=== PATIENT | male | born 1980 | race Asian ===

== ENCOUNTER 2017-05-30 20:48 | Inpatient (IN) | payer MEDICAID ==
[~2017-05-30] VITALS: Ht 182.9 cm; Wt 90.7 kg
[2017-05-30] MEDS ORDERED: NKM (20:55)
--- NOTE | 2017-05-30 21:06 | Emergency Room Report ---
History of Present Illness General Chief Complaint: Abdominal Pain Source: Patient Present Illness HPI Is a 36 year-old [place] male with no past medical history. He presents with chief complaint of onset of upper abdominal pain. Onset was 2 hours ago. Pain is severe. 10 out of 10. No radiation. Nausea but no vomiting. One episode any stool. Denies any trauma. No fever or chills. Never had this problem before. Not associated with food. Allergies: Coded Allergies: No Known Allergies (Unverified , 05/30/17) Patient History Past Medical History: see triage record, old chart reviewed Past Surgical History: other Pertinent Family History: none Social History: Denies: smoking, alcohol use, drug use Immunizations: other Reviewed Nursing Documentation: PMH: Agreed, PSxH: Agreed Nursing Documentation-PMH Past Medical History: No Stated History Review of Systems Eye: Denies: eye pain, blurred vision ENT: Denies: ear pain, nose congestion, throat swelling Respiratory: Denies: cough, shortness of breath Cardiovascular: Denies: chest pain, palpitations Gastrointestinal: Reports: abdominal pain, nausea Musculoskeletal: Denies: back pain, joint pain Skin: Denies: rash Neurological: Denies: headache, numbness Endocrine: Denies: increased thirst, increased urine Hematologic/Lymphatic: Denies: easy bruising All Other Systems: negative except mentioned in HPI Physical Exam Vital Signs Date Time Temp Pulse Resp B/P (MAP) Pulse Ox O2 Delivery O2 Flow Rate FiO2 05/30/17 20:53 54 22 101/48 100 Room Air vitals normal Sp02 EP Interpretation: reviewed, normal General Appearance: well appearing, no apparent distress, alert Head: normocephalic, atraumatic Eyes: bilateral eye PERRL, bilateral eye EOMI ENT: hearing grossly normal, normal pharynx Neck: full range of motion, supple, no meningismus Respiratory: chest non-tender, lungs clear, normal breath sounds Cardiovascular #1: regular rate, rhythm, no murmur Gastrointestinal: normal bowel sounds, no mass, no organomegaly, no bruit, non- distended, tenderness - Mild epigastric Musculoskeletal: back normal, gait/station normal, normal range of motion Psychiatric: mood/affect normal Skin: warm/dry Medical Decision Making Diagnostic Impression: Primary Impression: Appendicitis, acute Qualified Codes: K35.80 - Unspecified acute appendicitis ER Course Patient present with acute onset of abdominal pain. Initially upper quadrant and periumbilical. Now beginning to have lower right lower quadrant. CT scan center for appendicitis. Antibiotic started. Patient emitted to Dr. Giron with Dr. Lizama a surgical consult. Laboratory Tests Test 05/30/17 21:12 05/30/17 22:01 White Blood Count 17.0 K/UL (4.8-10.8) H Red Blood Count 4.56 M/UL (4.70-6.10) L Hemoglobin 14.2 G/DL (14.2-18.0) Hematocrit 39.7 % (42.0-52.0) L Mean Corpuscular Volume 87 FL (80-99) Mean Corpuscular Hemoglobin 31.2 PG (27.0-31.0) H Mean Corpuscular Hemoglobin Concent 35.9 G/DL (32.0-36.0) Red Cell Distribution Width 11.3 % (11.6-14.8) L Platelet Count 412 K/UL (150-450) Mean Platelet Volume 5.7 FL (6.5-10.1) L Neutrophils (%) (Auto) 83.4 % (45.0-75.0) H Lymphocytes (%) (Auto) 11.9 % (20.0-45.0) L Monocytes (%) (Auto) 4.0 % (1.0-10.0) Eosinophils (%) (Auto) 0.2 % (0.0-3.0) Basophils (%) (Auto) 0.5 % (0.0-2.0) Sodium Level 137 mEQ/L (135-145) Potassium Level 3.8 mEQ/L (3.4-4.9) Chloride Level 97 mEQ/L (98-107) L Carbon Dioxide Level 25 mEQ/L (20-30) Anion Gap 15 (5-15) Blood Urea Nitrogen 13 mg/dL (7-23) Creatinine 1.0 mg/dL (0.7-1.2) Estimat Glomerular Filtration Rate > 60 mL/min (>60) Glucose Level 161 mg/dL (74-106) H Calcium Level 9.5 mg/dL (8.6-10.2) Total Bilirubin 0.9 mg/dL (0.0-1.2) Aspartate Amino Transf (AST/SGOT) 15 U/L (5-40) Alanine Aminotransferase (ALT/SGPT) 17 U/L (3-41) Alkaline Phosphatase 77 U/L (40-129) Total Protein 7.8 g/dL (6.6-8.7) Albumin 4.7 g/dL (3.5-5.2) Globulin 3.1 g/dL Albumin/Globulin Ratio 1.5 (1.0-2.7) Lipase 27 U/L (< 60) Urine Color [place] Urine Appearance Clear Urine pH 5 (4.5-8.0) Urine Specific [place] 1.025 (1.005-1.035) Urine Protein 2+ (NEGATIVE) H Urine Glucose (UA) Negative (NEGATIVE) Urine Ketones 4+ (NEGATIVE) H Urine Occult Blood 4+ (NEGATIVE) H Urine Nitrite Negative (NEGATIVE) Urine Bilirubin Negative (NEGATIVE) Urine Ictotest Negative Urine Urobilinogen 1 MG/DL (0.0-1.0) H Urine Leukocyte Esterase 1+ (NEGATIVE) H Urine RBC 5-10 /HPF (0 - 0) H Urine WBC 0-2 /HPF (0 - 0) Urine Squamous Epithelial Cells None /LPF (NONE/OCC) Urine Bacteria Few /HPF (NONE) Urine Mucus Many /LPF (NONE/OCC) H Lab Results Impression labs with leukocytosis CT/MRI/US Diagnostic Results CT/MRI/US Diagnostic Results : Imaging Test Ordered: cT abdomen and pelvis Impression Read by radiologist. Appendix is large measuring up to 10.5 mm with subtle adjacent fat stranding suggestive of early acute appendicitis. No perforation. no Abscess. Last Vital Signs Date Time Temp Pulse Resp B/P (MAP) Pulse Ox O2 Delivery O2 Flow Rate FiO2 05/30/17 20:53 54 22 101/48 100 Room Air Status: improved Disposition: ADMITTED INPATIENT Condition: Serious ART WOODALL M.D. May 30, 2017 21:06
[2017-05-30] MEDS ORDERED: Mylanta II UD 30ml ORAL ONE (21:15)
[2017-05-30] MEDS ORDERED: Famotidine 20 MG/ 2ML VIAL IVP ONE (21:15)
[2017-05-30 21:31] LABS: BASOPHILS % (AUTO) 0.5 % (0.0-2.0); EOSINOPHILS % (AUTO) 0.2 % (0.0-3.0); LYMPHOCYTES % (AUTO) 11.9 % (20.0-45.0); MEAN CORPUSCULAR HEMOGLOBIN 31.2 PG (27.0-31.0); MEAN CORPUSCULAR HGB CONC 35.9 G/DL (32.0-36.0); MEAN CORPUSCULAR VOLUME 87 FL (80-99); MEAN PLATELET VOLUME 5.7 FL (6.5-10.1); NEUTROPHILS % (AUTO) 83.4 % (45.0-75.0); PLATELET COUNT 412 K/UL (150-450); RED BLOOD COUNT 4.56 M/UL (4.70-6.10); RED CELL DISTRIBUTION WIDTH 11.3 % (11.6-14.8)
[2017-05-30 21:52] LABS: ALANINE AMINOTRANSFERASE 17 U/L (3-41); ALBUMIN/GLOBULIN RATIO 1.5 (1.0-2.7); ANION GAP 15 (5-15); ASPARTATE AMINO TRANSFERASE 15 U/L (5-40); CALCIUM 9.5 mg/dL (8.6-10.2); CARBON DIOXIDE 25 mEQ/L (20-30); CHLORIDE 97 mEQ/L (98-107); GLOMERULAR FILTRATION RATE > 60 mL/min (>60); HEMOLYSIS 2; LIPASE 27 U/L (< 60); POTASSIUM 3.8 mEQ/L (3.4-4.9); SODIUM 137 mEQ/L (135-145); TOTAL PROTEIN 7.8 g/dL (6.6-8.7)
[2017-05-30 22:21] LABS: APPEARANCE,URINE CLEAR; KETONES,URINE 4+ (NEGATIVE); LEUKOCYTE ESTERASE ,URINE 1+ (NEGATIVE); NITRITE,URINE NEGATIVE (NEGATIVE); PH,URINE 5 (4.5-8.0); PROTEIN,URINE 2+ (NEGATIVE); UROBILINOGEN,URINE 1 MG/DL (0.0-1.0)
[2017-05-30 22:23] LABS: ICTOTEST NEGATIVE
[2017-05-30 22:30] LABS: BACTERIA,URINE FEW /HPF; MUCUS,URINE MANY /LPF (NONE/OCC); WBC,URINE 0-2 /HPF (0 - 0)
[2017-05-30] MEDS ORDERED: Piperacillin/Tazobactam 3.375 GM in NS 110 ML IVPB ONE (23:30)
[2017-05-30] MEDS ORDERED: Zosyn 3.375gm inj ONE (23:40)
[2017-05-30] MEDS ORDERED: Miralax 17gm pkt ORAL PRN (23:45)
[2017-05-30] MEDS ORDERED: Mylanta II UD 30ml ORAL PRN (23:45)
[2017-05-30] MEDS ORDERED: Morphine Sulfate 2mg/ml Inj IVP PRN (23:45)
[2017-05-30] MEDS ORDERED: Nitroglycerin Subl 0.4mg tab (Bottle Of 25) SL PRN (23:45)
[2017-05-30] MEDS ORDERED: HYDROmorphone 1mg/ml Carpuject IVP ONE (23:45)
[2017-05-30 23:57] VITALS: BP 125/79
[2017-05-31] VITALS (19 sets, daily range): BP systolic 103–133; BP diastolic 62–82
[2017-05-31] MEDS: D5 1/2NS 1,000 ML IV SCH ×2 (01:00→06:01)
[2017-05-31] MEDS ORDERED: Zosyn 3.375gm inj ONE (02:42)
[2017-05-31 05:02] LABS: MEAN CORPUSCULAR HEMOGLOBIN 31.1 PG (27.0-31.0); MEAN CORPUSCULAR HGB CONC 34.8 G/DL (32.0-36.0); MEAN CORPUSCULAR VOLUME 89 FL (80-99); MEAN PLATELET VOLUME 5.9 FL (6.5-10.1); PLATELET COUNT 341 K/UL (150-450); RED BLOOD COUNT 4.06 M/UL (4.70-6.10); WHITE BLOOD COUNT 14.5 K/UL (4.8-10.8)
[2017-05-31 05:15] LABS: INR 0.9 (0.9-1.1); PROTHROMBIN TIME 9.9 SEC (9.30-11.50)
--- NOTE | 2017-05-31 05:30 | General Progress Note ---
Progress Note Progress Note H&P dictated #[id number] This 36 yo male presents with rt lower abdominal pain and nausea. A CT scan reveals a thickened appendix. CBC shows a leukocytosis of 17K. He will need to undergo a laparoscopic appendectomy, possible open appendectomy. Petey Lizama MD May 31, 2017 05:30
[2017-05-31 05:35] LABS: ALANINE AMINOTRANSFERASE 14 U/L (3-41); ALBUMIN/GLOBULIN RATIO 1.3 (1.0-2.7); AMYLASE 41 U/L (10-110); ANION GAP 12 (5-15); ASPARTATE AMINO TRANSFERASE 12 U/L (5-40); CALCIUM 8.7 mg/dL (8.6-10.2); CARBON DIOXIDE 24 mEQ/L (20-30); CHLORIDE 104 mEQ/L (98-107); CREATININE 0.8 mg/dL (0.7-1.2); GLOMERULAR FILTRATION RATE > 60 mL/min (>60); HEMOLYSIS 1; LIPASE 20 U/L (< 60); POTASSIUM 4.4 mEQ/L (3.4-4.9); SODIUM 140 mEQ/L (135-145); TOTAL PROTEIN 6.8 g/dL (6.6-8.7)
[2017-05-31] MEDS: Piperacillin/Tazobactam 3.375 GM in NS 110 ML IVPB SCH ×3 (05:54→21:47)
[2017-05-31] MEDS ORDERED: Bupivacaine w/Epi 0.25% 30ml Vial INJ ONE (06:22)
--- NOTE | 2017-05-31 06:30 | Consultation ---
DATE OF CONSULTATION: 05/31/2017 SURGICAL CONSULTATION CONSULTING PHYSICIAN: Petey Lizama M.D. REASON FOR CONSULTATION: Abdominal pain. HISTORY OF PRESENT ILLNESS: This 36-year-old male, developed problems with upper abdominal pain at approximately 0630 hours yesterday evening. The pain intensified causing him to seek medical attention. He reported some nausea, but no vomiting. He had a normal formed stool last night. He denied any symptoms of fever or chills. He denied any problems of dysuria. PAST MEDICAL HISTORY: Previous surgery, lumbar laminectomy 20 years ago. 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 ALLERGIES: None known. MEDICATIONS: None. FAMILY HISTORY: The patient's father has high blood pressure. The patient's mother underwent heart surgery. SOCIAL HISTORY: Tobacco, none. Alcohol, none. 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 REVIEW OF SYSTEMS: Essentially negative. There is no history of angina or asthma. He denies any history of peptic ulcer disease or hepatitis. PHYSICAL EXAMINATION: GENERAL: Reveals a well-developed and well-nourished male, complaining of abdominal pain. VITAL SIGNS: Temperature is 97.6 degrees, blood pressure 121/71, pulse 60, and respirations 20. HEENT: Normocephalic. Pupils were equal and reactive to light. There was no scleral icterus. NECK: Supple without adenopathy. LUNGS: Clear. HEART: Showed a regular rhythm. ABDOMEN: Abdomen was flat. There is tenderness with some mild guarding in the right lower quadrant. There is early rebound tenderness noted. There were no inguinal hernias. EXTREMITIES: Showed no clubbing, cyanosis, or edema. Peripheral pulses are intact. LABORATORY STUDIES: CBC showed a white blood count of 17,000, hemoglobin 14.2 grams percent, hematocrit 39.7%, and platelet count 412,000. Clinical chemistry showed a sodium of 137, potassium 3.8, chloride 97, bicarbonate 25, BUN 13, creatinine 1.0, glucose 161, total bilirubin 0.9, SGOT 17, SGPT 15, and alkaline phosphatase normal at 77. Lipase normal at 27. Urinalysis showed a specific gravity of 1.025, 2+ protein, 4+ ketones, and 4+ occult blood. Dipstick was otherwise negative. Few bacteria, red blood cells 5 to 10, and white blood cells 0 to 2. PT and PTT were pending. A CT scan of the abdomen showed a thickened appendix, 1 cm. There was no obstructive pattern. There was no free air. IMPRESSION: Acute appendicitis. PLAN: The patient will be taken to the operating room for a laparoscopic appendectomy, possible open appendectomy. The nature, risks, and benefits of the procedure were explained. Petey Lizama M.D. DR: Dillon JOB#: [id number] CC:
[2017-05-31] MEDS ORDERED: Neostigmine 1mg/ml 10ml Inj ONE (07:00)
[2017-05-31] MEDS ORDERED: Sterile Water Irrig 1000ml IRRIG ONE (07:00)
[2017-05-31] MEDS ORDERED: Lidocaine 1% MPF 10mg/ml 5ml ONE (07:00)
[2017-05-31] MEDS ORDERED: Zemuron 50mg/5ml Inj IV ONE (07:00)
[2017-05-31] MEDS ORDERED: Midazolam 2mg/2ml Inj ONE (07:00)
[2017-05-31] MEDS ORDERED: Dexamethasone 4mg/ml vial ONE (07:00)
[2017-05-31] MEDS ORDERED: Glycopyrrolate 0.2mg/ml 1ml Vial ONE (07:00)
[2017-05-31] MEDS ORDERED: LR 1000ml ONE (07:00)
[2017-05-31] MEDS ORDERED: Propofol 10mg/ml 20ml IV ONE (07:00)
[2017-05-31] MEDS ORDERED: NS Irrig 1000ml ONE (07:00)
[2017-05-31] MEDS ORDERED: fentaNYL 100 mcg/2 mL IV ONE (07:00)
[2017-05-31] MEDS ORDERED: LR 1000ml 1,000 ML IVLG SCH (07:40)
--- NOTE | 2017-05-31 07:40 | Anethesia Preoperative Eval ---
Anesthesia Pre-op PMH/ROS General Date of Evaluation: May 31, 2017 Time of Evaluation: 06:44 Anesthesiologist: Dejan ASA Score: ASA 1 - Emergency Mallampati Score Class I : Soft palate, uvula, fauces, pillars visible Class II: Soft palate, uvula, fauces visible Class III: Soft palate, base of uvula visible Class IV: Only hard plate visible Mallampati Classification: Class II Surgeon: Dl Diagnosis: Acute Appendicitis Surgical Procedure: Laproscopic Appendectomy Anesthesia History: none Family History: no anesthesia problems Allergies: Coded Allergies: No Known Allergies (Unverified , 05/30/17) Medications: see eMAR Past Medical History PSxH Narrative: L Ring Finger Amputation, Lumbar Spine SX 97 Anesthesia Pre-op Phys. Exam Physician Exam Last Vital Signs Date Time Temp Pulse Resp B/P (MAP) Pulse Ox O2 Delivery O2 Flow Rate FiO2 05/31/17 04:00 97.6 60 20 121/71 98 Room Air Constitutional: NAD Neurologic: CN 2-12 intact Cardiovascular: RRR Respiratory: CTA Gastrointestinal: S/NT/ND Airway Exam Mallampati Score: Class II MO: full ROM: full Teeth: intact Anesthesia Pre-op A/P Labs Hematology Test 05/30/17 21:12 05/31/17 04:15 White Blood Count 17.0 K/UL (4.8-10.8) H 14.5 K/UL (4.8-10.8) H Red Blood Count 4.56 M/UL (4.70-6.10) L 4.06 M/UL (4.70-6.10) L Hemoglobin 14.2 G/DL (14.2-18.0) 12.6 G/DL (14.2-18.0) L Hematocrit 39.7 % (42.0-52.0) L 36.3 % (42.0-52.0) L Mean Corpuscular Volume 87 FL (80-99) 89 FL (80-99) Mean Corpuscular Hemoglobin 31.2 PG (27.0-31.0) H 31.1 PG (27.0-31.0) H Mean Corpuscular Hemoglobin Concent 35.9 G/DL (32.0-36.0) 34.8 G/DL (32.0-36.0) Red Cell Distribution Width 11.3 % (11.6-14.8) L 11.0 % (11.6-14.8) L Platelet Count 412 K/UL (150-450) 341 K/UL (150-450) Mean Platelet Volume 5.7 FL (6.5-10.1) L 5.9 FL (6.5-10.1) L Neutrophils (%) (Auto) 83.4 % (45.0-75.0) H % (45.0-75.0) Lymphocytes (%) (Auto) 11.9 % (20.0-45.0) L % (20.0-45.0) Monocytes (%) (Auto) 4.0 % (1.0-10.0) % (1.0-10.0) Eosinophils (%) (Auto) 0.2 % (0.0-3.0) % (0.0-3.0) Basophils (%) (Auto) 0.5 % (0.0-2.0) % (0.0-2.0) Coagulation Test 05/31/17 04:15 Prothrombin Time 9.9 SEC (9.30-11.50) Prothromb Time International Ratio 0.9 (0.9-1.1) Activated Partial Thromboplast Time 26 SEC (23-33) Chemistry Test 05/30/17 21:12 05/31/17 04:15 Sodium Level 137 mEQ/L (135-145) 140 mEQ/L (135-145) Potassium Level 3.8 mEQ/L (3.4-4.9) 4.4 mEQ/L (3.4-4.9) Chloride Level 97 mEQ/L (98-107) L 104 mEQ/L (98-107) Carbon Dioxide Level 25 mEQ/L (20-30) 24 mEQ/L (20-30) Anion Gap 15 (5-15) 12 (5-15) Blood Urea Nitrogen 13 mg/dL (7-23) 11 mg/dL (7-23) Creatinine 1.0 mg/dL (0.7-1.2) 0.8 mg/dL (0.7-1.2) Estimat Glomerular Filtration Rate > 60 mL/min (>60) > 60 mL/min (>60) Glucose Level 161 mg/dL (74-106) H 157 mg/dL (74-106) H Calcium Level 9.5 mg/dL (8.6-10.2) 8.7 mg/dL (8.6-10.2) Total Bilirubin 0.9 mg/dL (0.0-1.2) 1.0 mg/dL (0.0-1.2) Aspartate Amino Transf (AST/SGOT) 15 U/L (5-40) 12 U/L (5-40) Alanine Aminotransferase (ALT/SGPT) 17 U/L (3-41) 14 U/L (3-41) Alkaline Phosphatase 77 U/L (40-129) 74 U/L (40-129) Total Protein 7.8 g/dL (6.6-8.7) 6.8 g/dL (6.6-8.7) Albumin 4.7 g/dL (3.5-5.2) 3.9 g/dL (3.5-5.2) Globulin 3.1 g/dL 2.9 g/dL Albumin/Globulin Ratio 1.5 (1.0-2.7) 1.3 (1.0-2.7) Lipase 27 U/L (< 60) 20 U/L (< 60) Amylase Level 41 U/L (10-110) Risk Assessment & Plan Assessment: ASA 1E Status Change Before Surgery: No Pre-Antibiotics Drug: Zosyn 3.375 Grams IV Given Within 1 Hr of Incision: Yes Time Given: 07:01 Tyrone Wylie MD May 31, 2017 07:40
--- NOTE | 2017-05-31 07:44 | Immediate Post-Op Evaluation ---
Immediate Post-Op Evalulation Immediate Post-Op Evalulation Procedure: Laprocopic Appendectomy Date of Evaluation: May 31, 2017 Time of Evaluation: 09:02 IV Fluids: 1100 LR Blood Products: 0 Estimated Blood Loss: 50 Urinary Output: 200 Blood Pressure Systolic: 124 Blood Pressure Diastolic: 76 Pulse Rate: 67 Respiratory Rate: 16 O2 Sat by Pulse Oximetry: 100 Temperature (Fahrenheit): 98.8 Pain Score (1-10): 2 Nausea: No Vomiting: No Complications 0 Patient Status: awake, reacts, patent, extubated, none Hydration Status: adequate Drug: Zosyn 3.375 Grams IV Given Within 1 Hr of Incision: Yes Time Given: 07:01 Tyrone Wylie MD May 31, 2017 07:44
[2017-05-31] MEDS ORDERED: Atropine Inj 1mg/10ml Syr IV PRN (07:45)
[2017-05-31] MEDS ORDERED: Hydromorphone 0.5mg/0.5ml inj IVP PRN ×2 (07:45→08:00)
[2017-05-31] MEDS ORDERED: Midazolam 2mg/2ml Inj IVP PRN (07:45)
[2017-05-31] MEDS ORDERED: Ketorolac 30mg Inj IV PRN (07:45)
[2017-05-31] MEDS ORDERED: Norco 7.5mg/325mg tab ORAL PRN (07:45)
[2017-05-31] MEDS ORDERED: DiphenhydrAMINE 50mg/ml Inj IVP PRN ×2 (07:45→08:45)
[2017-05-31] MEDS ORDERED: fentaNYL 100 mcg/2 mL IV PRN (07:45)
[2017-05-31] MEDS ORDERED: Metoclopramide 10mg/2ml Inj IVP PRN (07:45)
[2017-05-31] MEDS ORDERED: Norco 5mg/325mg tab ORAL PRN ×2 (07:45→08:45)
[2017-05-31] MEDS ORDERED: Meperidine 25mg/0.5ml Inj (FOR RIGORS ONLY) IV PRN (07:45)
[2017-05-31] MEDS ORDERED: Ketorolac 60mg Inj IV PRN (07:45)
[2017-05-31] MEDS ORDERED: oxyCODONE HCL/Acetaminophen 5/325mg ORAL PRN (07:45)
[2017-05-31] MEDS ORDERED: LORazepam Inj 2mg/ml 1ml IV PRN (07:45)
[2017-05-31] MEDS ORDERED: Acetaminophen (Non formulary) 100 ML IV SCH (08:45)
--- NOTE | 2017-05-31 08:49 | Pre-Procedure Note/Attestation ---
Pre-Procedure Note/Attestation Complete Prior to Procedure Planned Procedure: not applicable Procedure Narrative: laparoscopic appendectomy, possible open appendectomy Indications for Procedure Pre-Operative Diagnosis: acute appendicitis Attestation I attest that I discussed the nature of the procedure; its benefits; risks and complications; and alternatives (and the risks and benefits of such alternatives ), prior to the procedure, with the patient (or the patient's legal account development representative). I attest that, if there was a reasonable possibility of needing a blood transfusion, the patient (or the patient's legal account development representative) was given the [facility] standardized written summary, pursuant to the Suhail Estella Blood Safety Act ([place] Health and Safety Code # 1645, as amended). I attest that I re-evaluated the patient just prior to the surgery and that there has been no change in the patient's H&P, except as documented below: none Petey Lizama MD May 31, 2017 08:49
[2017-05-31] MEDS: Heparin 5000 units/ml inj SUBQ SCH ×2 (09:00→21:58)
--- NOTE | 2017-05-31 09:00 | Brief Operative Note ---
Immediate Post Operative Note Operative Note Pre-op Diagnosis: acute appendicitis Procedure: laparoscopic appendectomy Post-op Diagnosis: acute suppurative appendicitis Surgeon: Zara Lizama MD Anesthesiologist: Amador Wylie MD Anesthesia: general Specimen: yes Complications: none Condition: stable Fluids: 1100 ml Implant(s) used?: No Petey Lizama MD May 31, 2017 09:00
--- NOTE | 2017-05-31 09:47 | Diagnostic Imaging Report ---
Indication: Abdominal pain Technique: Continuous helical transaxial imaging of the abdomen and pelvis was obtained from the lung bases to the pubic symphysis during intravenous contrast administration. Coronal 2-D reformats were also obtained. Study obtained in a Siemens sensation [address] Total Dose length Product (DLP): [address] Dose Index Volume (CTDIvol): 18.84, 0.15 mGy Comparison: None Findings: There is some posterior basilar atelectasis noted. Liver and spleen and kidneys are unremarkable. There is no hydronephrosis. Gallbladder and pancreas are unremarkable. The appendix is retrocecal and dilated. There is enhancement of the wall and the wall is ill-defined. Appendiceal diameter is about 12 mm. Findings consistent with acute appendicitis. There is no abscess. No free fluid or free air identified. Small left inguinal hernia containing fat demonstrated. Bladder is nondistended. A few scattered calcified plaques noted within the aorta and iliac arteries. Impression: Acute appendicitis. Mild atherosclerotic vascular disease [facility] has communicated the preliminary results to the Emergency Department. Their findings are largely concordant with this report. The CT scanner at [facility] is accredited by the [employer] and the scans are performed using dose optimization techniques as appropriate to a performed exam including Automatic Exposure control.
[2017-05-31] MEDS: D5 1/2NS w/KCl 20mEq 1,000 ML IV SCH ×2 (12:25→20:30)
[2017-05-31] MEDS: Docusate 100mg cap ORAL SCH ×2 (12:27→17:41)
--- NOTE | 2017-05-31 17:00 | Operative Note - Dictated ---
DATE OF OPERATION: 05/31/2017 PREOPERATIVE DIAGNOSIS: Acute appendicitis. POSTOPERATIVE DIAGNOSIS: Suppurative appendicitis. PROCEDURE: Laparoscopic appendectomy. SURGEON: Petey Lizama M.D. ANESTHESIA: General endotracheal. ANESTHESIOLOGIST: Tyrone Wylie M.D. INDICATIONS FOR SURGERY: This 36-year-old male presented with 1-day history of worsening upper abdominal pain that began to localize to the right lower quadrant. He was found to have leukocytosis to 17,000. CT scan taken from the emergency room revealed a swollen appendix with some stranding. He was advised to undergo laparoscopic appendectomy, possible open appendectomy. The nature, risks, and benefits of the procedure were explained. OPERATIVE FINDINGS: Exploration of the abdominal cavity revealed no ascites. The liver was normal in size and texture. There was a prominent amount of the greater omentum adherent to the cecum and right colon. Upon mobilization of the omentum and the right colon, a markedly inflamed appendix was encountered. The appendiceal base appeared healthy. There was no evidence of abscess formation. OPERATIVE TECHNIQUE: With the patient in the supine position after induction of adequate general anesthesia, the abdomen was prepped and draped in sterile fashion. Time-out was called. A small puncture wound was made just above the umbilicus. A Veress needle was introduced into the abdominal cavity. The intraperitoneal position was confirmed by saline instillation and the drop test. The abdomen was insufflated with four liters of carbon dioxide. The Veress needle was removed. A 5 mm trocar was introduced. After inspection of the abdomen, a second 5 mm trocar was introduced in the suprapubic region slightly to the left of the midline. A 12 mm trocar was introduced in the left lower quadrant through a small transverse incision. The cecum was identified. The cecum was grasped with a grasping forceps. There was a generous amount of the omentum adherent to the cecum. The lateral peritoneal attachments to the cecum and right colon were slowly taken down by blunt dissection and electrocautery. The inflamed appendix was identified. The appendix was mobilized anteriorly. There were extensive omental adhesions to this area that were carefully taken down. The mesoappendix was dissected. There was some bleeding from this site. The bleeding was controlled with Hemoclips. The appendix was further mobilized until the base of the appendix was identified. An Endo-EMIGDIO stapler was placed across the base of the appendix and fired. The appendix was removed through the 12 mm port with the help of an EndoCatch apparatus. The right paracolic gutter was copiously irrigated and aspirated. There was old clot from the mobilization of the ascending colon. There was no active bleeding. Due to the extensive amount of clot on the right paracolic gutter, a 19-Vietnamese Daniel drain was placed along the right paracolic gutter through the suprapubic 5 mm puncture site. The drain was secured to the skin with a 2-0 nylon suture. The 12 mm trocar was removed. Under laparoscopic visualization, there was no evidence of hemorrhage from the site. The pneumoperitoneum was reversed and the 5 mm supraumbilical port was removed. The left lower quadrant puncture wound was closed with #0 Vicryl fascial suture followed by a 4-0 Monocryl subcuticular stitch. The 5 mm supraumbilical puncture site was closed with interrupted 4-0 Monocryl subcuticular sutures. The wounds were injected with 0.25% Marcaine with epinephrine solution. Sterile dressings were applied. The patient tolerated the procedure well and was returned to the recovery room in stable condition. ESTIMATED BLOOD LOSS: A 30 mL. Petey Lizama M.D. DR: LUCIO JOB#: [id number] CC:
[2017-05-31] MEDS ORDERED: CIPROFLOXACIN500 M2 ORAL (17:50)
[2017-05-31] MEDS ORDERED: METRONIDAZOLE500 MG ORAL (17:50)
--- NOTE | 2017-05-31 18:07 | Infectious Diseases Prog Note ---
Infectious Disease Consult Infectious Disease Consult Infectious Disease Consult INFECTIOUS DISEASE CONSULTATION DATE OF CONSULTATION: [id number] CONSULTING PHYSICIAN: Bubba Childs M.D., [facility], [facility] Covering for Dr. Alcantara REFERRING PHYSICIAN: Carmela Giron MD REASON FOR CONSULTATION: acute appendicitis, uncomplicated, s/p lap appy HISTORY OF PRESENT ILLNESS: 36-year-old male admitted yesterday for acute abd pain, nausea, w/o emesis, found to have radiographic evidence of acute appendicitis w/o abscess or stigmata of perforation, now s/p uncomplicated laparoscopic appendectomy earlier today. He has been afebrile throughout, never hemodynamically unstable, admission leukocytosis of 17 with left shift improved this AM to 14 on empiric IV zosyn, and denies recent cough, chest pain, hemoptysis, dysuria, urinary frequency. his is at bedside. he reports he's had about 2 days of R sided pain with deep inspiration. PAST MEDICAL HISTORY: No chronic medical conditions Previous surgery, lumbar laminectomy 20 years ago. 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 Past Surgical History: lumbar laminectomy 20 years ago. 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 ALLERGIES: No known drug allergies. ANTIBIOTICS: Zosyn 3.375gm IV q8hr (05/30-- Home and hospitalized medications reviewed. SOCIAL HISTORY: Tobacco, none. Alcohol, none. 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 FAMILY HISTORY: The patient's father has high blood pressure. The patient's mother underwent heart surgery. REVIEW OF SYSTEMS: 11 point ROS negative except for that mentioned in HPI above. PHYSICAL EXAM: VITAL SIGNS: Tb 97.7F HR 76 BP 103/67 RR 19 99% 3L NC GEN: awake, alert, non toxic appearing HEENT: Mild pale conjunctiva. oral mucosa dry, pharynx w/o exudate or effusion. No icterus. Head normocephalic, neck supple. NECK: No cervical LAD CHEST: Clear to auscultation bilaterally. slight decreased breath sounds at right lung base. HEART: S1 and S2, no murmurs, no rubs. ABDOMEN: soft, non tender, non distended, hypoactive active bowel sounds. periumbilical lap appy incision site under dressing. low midline GERHARD drain draining mild-mod amount of blood EXTREMITIES: No cyanosis, no clubbing, no edema. NEUROLOGIC: Awake, alert, no focal neurologic motor deficits. : no andrea in place LYMPH: no LAD RECTAL: deferred LABORATORY AND DIAGNOSTIC DATA: WBC 17.0-->14.5, hgb 12.6, plt 341, N 83.4% bmp 140/4.4/104/24/11/0.8/157 ca 8.7, t bili 1.0, alk phos 74, ast 12, alt 14 , prot 6.8, alb 3.9, amylase 41, lipase 20 u/a 1.025/2+ prot/4+ ketones/1+LE/0-2WBC/5-10 RBC RADIOLOGY: Patient : RAYMON MOSCOSO Referring Physician: ART WOODALL M.D. ID Number: [id number] Service Date: 05/30/17 : 1980 Report Date: 05/30/17 Gender: M Accession No.: [id number] Location: 3E Procedure: CT Abdomen Pelvis w/Contrast Indication: Abdominal pain Technique: Continuous helical transaxial imaging of the abdomen and pelvis was obtained from the lung bases to the pubic symphysis during intravenous contrast administration. Coronal 2-D reformats were also obtained. Study obtained in a Siemens sensation [address] Total Dose length Product (DLP): [address] Dose Index Volume (CTDIvol): 18.84, 0.15 mGy Comparison: None Findings: There is some posterior basilar atelectasis noted. Liver and spleen and kidneys are unremarkable. There is no hydronephrosis. Gallbladder and pancreas are unremarkable. The appendix is retrocecal and dilated. There is enhancement of the wall and the wall is ill-defined. Appendiceal diameter is about 12 mm. Findings consistent with acute appendicitis. There is no abscess. No free fluid or free air identified. Small left inguinal hernia containing fat demonstrated. Bladder is nondistended. A few scattered calcified plaques noted within the aorta and iliac arteries. Impression: Acute appendicitis. Mild atherosclerotic vascular disease ASSESSMENT AND PLAN ASSESSMENT: Acute appendicitis, w/o abscess, w/o perforation, s/p laparoscopic appendectomy 05/31/17 leukocytosis w/ left shift afebrile R sided referred pain PLAN: Continue empiric IV zosyn D#1 Once tolerating PO and ready for discharge, plan to transition to PO cipro 500mg twice daily and flagyl 500mg PO q8hr to complete 7 days post op. updated d/c meds and printed our prescription and placed in his paper chart. f/u final operative report to confirm no abscess or early phlegmon noted intraoperatively monitor CBC, repeat in AM PCXR for referred pain, r/o unlikely sympathetic effusion monitor temp routine post op care incentive spirometry Thank you for this consultation. Will continue to follow. Covering for Dr. Alcantara, please call me with questions, Bubba Childs M.D. May 31, 2017 18:07
[2017-06-01] VITALS: BP 119/72
[2017-06-01] MEDS: HYDROmorphone 1mg/ml Carpuject IVP PRN (03:24)
[2017-06-01 04:00] VITALS: BP 113/68
[2017-06-01] MEDS: D5 1/2NS w/KCl 20mEq 1,000 ML IV SCH (04:37)
[2017-06-01] MEDS: Piperacillin/Tazobactam 3.375 GM in NS 110 ML IVPB SCH ×3 (05:48→21:05)
[2017-06-01 05:50] LABS: MEAN CORPUSCULAR HEMOGLOBIN 30.5 PG (27.0-31.0); MEAN CORPUSCULAR HGB CONC 34.7 G/DL (32.0-36.0); MEAN CORPUSCULAR VOLUME 88 FL (80-99); MEAN PLATELET VOLUME 5.2 FL (6.5-10.1); PLATELET COUNT 300 K/UL (150-450); RED BLOOD COUNT 3.61 M/UL (4.70-6.10)
[2017-06-01 07:10] LABS: ANION GAP 10 (5-15); CALCIUM 8.6 mg/dL (8.6-10.2); CARBON DIOXIDE 27 mEQ/L (20-30); CHLORIDE 101 mEQ/L (98-107); CREATININE 0.8 mg/dL (0.7-1.2); GLOMERULAR FILTRATION RATE > 60 mL/min (>60); POTASSIUM 4.4 mEQ/L (3.4-4.9); SODIUM 138 mEQ/L (135-145)
[2017-06-01 08:00] VITALS: BP 110/83
[2017-06-01 08:24] LABS: BAND NEUTROPHILS % (MANUAL) 0 % (0-8); BASOPHILS % (MANUAL) 0 % (0-2); EOSINOPHILS % (MANUAL) 0 % (0-3); LYMPHOCYTES % (MANUAL) 8 % (20-45); NEUTROPHILS % (MANUAL) 89 % (45-75); PLATELET ESTIMATE ADEQUATE; PLATELET MORPHOLOGY NORMAL; TOTAL CELLS COUNTED 100
[2017-06-01] MEDS: Docusate 100mg cap ORAL SCH ×2 (09:21→18:16)
[2017-06-01] MEDS: Heparin 5000 units/ml inj SUBQ SCH ×2 (09:26→21:12)
--- NOTE | 2017-06-01 10:38 | General Progress Note ---
Progress Note Progress Note Surgery: patient seen and examined at bedside. no acute events. having abdominal pain. no n/v/f/c. tolerating clears. no BM. drain without serosang output abd soft, mild distended, tender in RLQ and incisional. -Advance diet as tolerated -repeat labs tomorrow -cont abx -ambulate and OOB -TKO iv fluids -possible d/c tomorrow. Osvaldo Qureshi Jun 01, 2017 10:38
--- NOTE | 2017-06-01 11:27 | 48 Hour Post Anesthesia Eval ---
Post Anesthesia Evaluation Procedure: Laprocopic Appendectomy Date of Evaluation: Jun 01, 2017 Time of Evaluation: 11:26 Blood Pressure Systolic: 116 0: 54 Pulse Rate: 72 Respiratory Rate: 20 Temperature (Fahrenheit): 97.6 O2 Sat by Pulse Oximetry: 98 Airway: patent Nausea: No Vomiting: No Pain Intensity: 3 Hydration Status: adequate Cardiopulmonary Status: stable Mental Status/LOC: patient returned to baseline Follow-up Care/Observations: n/a Post-Anesthesia Complications: none Follow-up care needed: N/A KEERTHI RUSSO M.D. Jun 01, 2017 11:27
[2017-06-01 12:00] VITALS: BP 118/78
--- NOTE | 2017-06-01 15:15 | Infectious Diseases Prog Note ---
Assessment/Plan Assessment/Plan ASSESSMENT: Acute appendicitis, w/o abscess, w/o perforation, s/p laparoscopic appendectomy 05/31/17 leukocytosis w/ left shift, improving down to 13 afebrile s/p R sided referred pain PLAN: Continue empiric IV zosyn D#2 Once tolerating PO and ready for discharge, plan to transition to PO cipro 500mg twice daily and flagyl 500mg PO q8hr to complete 7 days post op. updated d/c meds and printed our prescription and placed in his paper chart. monitor CBC, repeat in AM monitor temp routine post op care incentive spirometry Subjective Constitutional: Reports: no symptoms Respiratory: Reports: no symptoms Cardiovascular: Reports: no symptoms Gastrointestinal/Abdominal: Reports: bloating Genitourinary: Reports: no symptoms Skin: Reports: no symptoms Hematologic: Reports: no symptoms Musculoskeletal: Reports: no symptoms Allergies: Coded Allergies: No Known Allergies (Unverified , 05/30/17) Subjective hasn't passed much gas yet. referred R scapular pain completely resolved. starting to tolerate diet. Objective Vital Signs Last 24 Hour Vital Signs Date Time Temp Pulse Resp B/P (MAP) Pulse Ox O2 Delivery O2 Flow Rate FiO2 06/01/17 12:00 97.9 79 20 118/78 96 Room Air 06/01/17 11:27 72 20 98 06/01/17 08:00 99.3 89 19 110/83 95 Room Air 06/01/17 04:00 98.1 80 18 113/68 96 06/01/17 00:00 97.6 87 18 119/72 97 Room Air 05/31/17 20:00 98.5 79 17 112/63 99 Nasal Cannula 2.0 05/31/17 17:31 97.7 76 19 103/67 99 Nasal Cannula 3.0 05/31/17 15:30 98.3 65 19 107/68 98 Nasal Cannula 3.0 Height (Feet): 6 Height (Inches): 0.00 Weight (Pounds): 200 Objective GEN: awake, alert, non toxic appearing HEENT: conjunctiva pink. oral mucosa moist, pharynx w/o exudate or effusion. No icterus. Head normocephalic, neck supple. NECK: No cervical LAD CHEST: Clear to auscultation bilaterally. slight decreased breath sounds at right lung base. HEART: S1 and S2, no murmurs, no rubs. ABDOMEN: soft, non tender, non distended, hypoactive active bowel sounds. periumbilical lap appy incision site under dressing. low midline GERHARD drain draining minimal amount of blood EXTREMITIES: No cyanosis, no clubbing, no edema. NEUROLOGIC: Awake, alert, no focal neurologic motor deficits. : no andrea in place LYMPH: no LAD RECTAL: deferred Laboratory Tests Test 06/01/17 05:30 White Blood Count 13.0 K/UL (4.8-10.8) H Red Blood Count 3.61 M/UL (4.70-6.10) L Hemoglobin 11.0 G/DL (14.2-18.0) L Hematocrit 31.7 % (42.0-52.0) L Mean Corpuscular Volume 88 FL (80-99) Mean Corpuscular Hemoglobin 30.5 PG (27.0-31.0) Mean Corpuscular Hemoglobin Concent 34.7 G/DL (32.0-36.0) Red Cell Distribution Width 11.0 % (11.6-14.8) L Platelet Count 300 K/UL (150-450) Mean Platelet Volume 5.2 FL (6.5-10.1) L Neutrophils (%) (Auto) % (45.0-75.0) Lymphocytes (%) (Auto) % (20.0-45.0) Monocytes (%) (Auto) % (1.0-10.0) Eosinophils (%) (Auto) % (0.0-3.0) Basophils (%) (Auto) % (0.0-2.0) Differential Total Cells Counted 100 Neutrophils % (Manual) 89 % (45-75) H Lymphocytes % (Manual) 8 % (20-45) L Monocytes % (Manual) 3 % (1-10) Eosinophils % (Manual) 0 % (0-3) Basophils % (Manual) 0 % (0-2) Band Neutrophils 0 % (0-8) Platelet Estimate Adequate Platelet Morphology Normal Red Blood Cell Morphology Normal Sodium Level 138 mEQ/L (135-145) Potassium Level 4.4 mEQ/L (3.4-4.9) Chloride Level 101 mEQ/L (98-107) Carbon Dioxide Level 27 mEQ/L (20-30) Anion Gap 10 (5-15) Blood Urea Nitrogen 11 mg/dL (7-23) Creatinine 0.8 mg/dL (0.7-1.2) Estimat Glomerular Filtration Rate > 60 mL/min (>60) Glucose Level 126 mg/dL (74-106) H Calcium Level 8.6 mg/dL (8.6-10.2) Current Medications Medications (Trade) Dose Ordered Sig/Estrada Route PRN Reason Start Time Stop Time Status Last Admin Dose Admin Acetaminophen (Tylenol) 650 mg Q4H PRN ORAL fever 05/30/17 23:45 06/29/17 23:44 Acetaminophen/ Hydrocodone Bitart ([place] 5/325) 1 tab Q4H PRN ORAL Moderate Pain (Pain Scale 4-6) 05/31/17 08:45 06/07/17 08:44 Al Hydroxide/Mg Hydroxide (Mylanta II) 30 ml Q6H PRN ORAL dyspepsia 05/30/17 23:45 06/29/17 23:44 Dextrose (Dextrose 50%) STAT PRN IV Hypoglycemia 05/30/17 23:45 06/29/17 23:44 Diphenhydramine HCl (Benadryl) 12.5 mg Q6H PRN IVP Itching/Pruritis 05/31/17 08:45 06/30/17 08:44 Diphenhydramine HCl (Benadryl) 25 mg Q6H PRN ORAL Itching/Pruritis 05/30/17 23:45 06/29/17 23:44 Docusate Sodium (Colace) 100 mg TWICE A DAY ORAL 05/31/17 11:45 06/30/17 11:44 06/01/17 09:21 Heparin Sodium (Porcine) (Heparin 5000 units/ml) 5,000 units EVERY 12 HOURS SUBQ 05/31/17 09:00 06/30/17 08:59 06/01/17 09:26 Hydromorphone HCl (Dilaudid) 1 mg Q3H PRN IVP pain score 4-6 05/31/17 08:45 06/07/17 08:44 06/01/17 03:24 Hydromorphone HCl (Dilaudid) 2 mg Q3H PRN IVP pain score 7-10 05/31/17 08:45 06/07/17 08:44 05/31/17 12:22 Morphine Sulfate (Morphine Sulfate) 2 mg EVERY 4 HOURS PRN IVP severe Pain (Pain Scale 7-10) 05/30/17 23:45 06/06/17 23:44 Nitroglycerin (Ntg) 0.4 mg Q5M X 3 DOSES PRN SL Prn Chest Pain 05/30/17 23:45 06/29/17 23:44 Ondansetron HCl (Zofran) 4 mg Q6H PRN IVP Nausea & Vomiting 05/31/17 08:45 06/30/17 08:44 Piperacillin Sod/ Tazobactam Sod 3.375 gm/Sodium Chloride 110 ml @ 27.5 mls/hr EVERY 8 HOURS IVPB 05/31/17 06:00 06/07/17 05:59 06/01/17 14:39 Polyethylene Glycol (Miralax) 17 gm HSPRN PRN ORAL Constipation 05/30/17 23:45 06/29/17 23:44 Temazepam (Restoril) 15 mg HSPRN PRN ORAL Insomnia 05/30/17 23:45 06/06/17 23:44 05/31/17 03:05 Bubba Childs M.D. Jun 01, 2017 15:15
[2017-06-01] MEDS ORDERED: DiphenhydrAMINE 50mg/ml Inj IVP PRN (16:45)
[2017-06-01 20:42] VITALS: BP 123/73
[2017-06-02 00:06] VITALS: BP 122/80
[2017-06-02 04:32] VITALS: BP 127/87
[2017-06-02] MEDS: Piperacillin/Tazobactam 3.375 GM in NS 110 ML IVPB SCH ×3 (05:14→21:23)
[2017-06-02] MEDS: HYDROmorphone 1mg/ml Carpuject IVP PRN (06:36)
[2017-06-02 06:53] LABS: MEAN CORPUSCULAR HEMOGLOBIN 30.4 PG (27.0-31.0); MEAN CORPUSCULAR VOLUME 90 FL (80-99); MEAN PLATELET VOLUME 5.9 FL (6.5-10.1); PLATELET COUNT 336 K/UL (150-450); RED BLOOD COUNT 3.91 M/UL (4.70-6.10); RED CELL DISTRIBUTION WIDTH 10.6 % (11.6-14.8); WHITE BLOOD COUNT 11.3 K/UL (4.8-10.8)
[2017-06-02 08:16] VITALS: BP 128/78
[2017-06-02 08:16] LABS: BAND NEUTROPHILS % (MANUAL) 0 % (0-8); BASOPHILS % (MANUAL) 0 % (0-2); EOSINOPHILS % (MANUAL) 0 % (0-3); LYMPHOCYTES % (MANUAL) 6 % (20-45); NEUTROPHILS % (MANUAL) 88 % (45-75); PLATELET ESTIMATE ADEQUATE; PLATELET MORPHOLOGY NORMAL; TOTAL CELLS COUNTED 100
[2017-06-02 08:17] LABS: HYPOCHROMASIA 1+
[2017-06-02] MEDS: Docusate 100mg cap ORAL SCH ×2 (09:34→17:19)
[2017-06-02] MEDS: Heparin 5000 units/ml inj SUBQ SCH ×2 (09:38→21:26)
[2017-06-02] MEDS ORDERED: NS 275ml ONE (09:53)
[2017-06-02] MEDS ORDERED: Tubing IV Secondary IV ONE (09:53)
--- NOTE | 2017-06-02 11:41 | General Progress Note ---
Progress Note Progress Note Surgery: patient seen and examined at bedside. no acute events overnight. low grade fever. ambulatory. pain improved today but still has fair amount of pain. no nausea or emesis. minimal oral intake (decrease appetite). passing minimal flatus. no bm currently afebrile, HD stable, leukocytosis resolving wbc 11k today. abdominal exam with mild distention and decrease bowel sounds. tender mainly around incisions and drain. drain with >250cc serous output this shift. seems to be developing mild ileus post op full liquid diet as tolerated LR @50cc/hr ambulate and oob incentive spirometry rx as written. not ready for discharge yet. needs to have improved return of bowel function and better pain control. will re evaluate tomorrow. continue current care for now Osvaldo Qureshi Jun 02, 2017 11:41
[2017-06-02 11:52] VITALS: BP 131/83
[2017-06-02] MEDS: LR 1000ml 1,000 ML IV SCH (12:21)
--- NOTE | 2017-06-02 12:42 | Infectious Diseases Prog Note ---
Assessment/Plan Assessment/Plan ASSESSMENT: Acute appendicitis, w/o abscess, w/o perforation, s/p laparoscopic appendectomy 05/31/17 leukocytosis w/ left shift, improving down to 11 low grade temp last night s/p R scapular referred pain post op incisional pain, improving post op anorexia, minimal flatus, no bm, no eructation post op GERHARD drain with >250cc serous output overnight PLAN: Continue empiric IV zosyn D#3 Once tolerating PO and ready for discharge, plan to transition to PO cipro 500mg twice daily and flagyl 500mg PO q8hr to complete 7 days post op. updated d/c meds and printed our prescription and placed in his paper chart. monitor CBC, repeat in AM monitor temp routine post op care incentive spirometry surgery managing early post op ileus and GERHARD drain Subjective Constitutional: Reports: no symptoms Gastrointestinal/Abdominal: Reports: bloating, other - pain. minimal flatus. no bm. Genitourinary: Reports: no symptoms Skin: Reports: no symptoms Hematologic: Reports: no symptoms Musculoskeletal: Reports: no symptoms Allergies: Coded Allergies: No Known Allergies (Unverified , 05/30/17) Subjective hasn't passed much gas yet. referred R scapular pain completely resolved. starting to tolerate diet but poor appetite. Objective Vital Signs Last 24 Hour Vital Signs Date Time Temp Pulse Resp B/P (MAP) Pulse Ox O2 Delivery O2 Flow Rate FiO2 06/02/17 11:52 98.7 85 20 131/83 99 Room Air 06/02/17 08:16 98.1 90 20 128/78 99 Room Air 06/02/17 07:06 98.5 06/02/17 04:32 98.5 79 19 127/87 95 Room Air 06/02/17 03:09 98.3 06/02/17 00:06 98.3 84 19 122/80 96 Room Air 06/01/17 22:04 99.7 06/01/17 20:42 100.9 88 18 123/73 96 Room Air Height (Feet): 6 Height (Inches): 0.00 Weight (Pounds): 200 Objective GEN: awake, alert, non toxic appearing HEENT: conjunctiva pink. oral mucosa moist, pharynx w/o exudate or effusion. No icterus. Head normocephalic, neck supple. NECK: No cervical LAD CHEST: Clear to auscultation bilaterally. slight decreased breath sounds at right lung base. HEART: S1 and S2, no murmurs, no rubs. ABDOMEN: soft, non tender, non distended, hypoactive active bowel sounds. periumbilical lap appy incision site under dressing. low midline GERHARD drain draining significant serosanguinous fluid. EXTREMITIES: No cyanosis, no clubbing, no edema. NEUROLOGIC: Awake, alert, no focal neurologic motor deficits. : no andrea in place LYMPH: no LAD RECTAL: deferred Laboratory Tests Test 06/02/17 06:10 White Blood Count 11.3 K/UL (4.8-10.8) H Red Blood Count 3.91 M/UL (4.70-6.10) L Hemoglobin 11.9 G/DL (14.2-18.0) L Hematocrit 35.0 % (42.0-52.0) L Mean Corpuscular Volume 90 FL (80-99) Mean Corpuscular Hemoglobin 30.4 PG (27.0-31.0) Mean Corpuscular Hemoglobin Concent 34.0 G/DL (32.0-36.0) Red Cell Distribution Width 10.6 % (11.6-14.8) L Platelet Count 336 K/UL (150-450) Mean Platelet Volume 5.9 FL (6.5-10.1) L Neutrophils (%) (Auto) % (45.0-75.0) Lymphocytes (%) (Auto) % (20.0-45.0) Monocytes (%) (Auto) % (1.0-10.0) Eosinophils (%) (Auto) % (0.0-3.0) Basophils (%) (Auto) % (0.0-2.0) Differential Total Cells Counted 100 Neutrophils % (Manual) 88 % (45-75) H Lymphocytes % (Manual) 6 % (20-45) L Monocytes % (Manual) 6 % (1-10) Eosinophils % (Manual) 0 % (0-3) Basophils % (Manual) 0 % (0-2) Band Neutrophils 0 % (0-8) Platelet Estimate Adequate Platelet Morphology Normal Hypochromasia 1+ Current Medications Medications (Trade) Dose Ordered Sig/Estrada Route PRN Reason Start Time Stop Time Status Last Admin Dose Admin Acetaminophen (Tylenol) 650 mg Q4H PRN ORAL fever 05/30/17 23:45 06/29/17 23:44 06/01/17 21:05 Acetaminophen/ Hydrocodone Bitart ([place] 5/325) 1 tab Q4H PRN ORAL Moderate Pain (Pain Scale 4-6) 05/31/17 08:45 06/07/17 08:44 Al Hydroxide/Mg Hydroxide (Mylanta II) 30 ml Q6H PRN ORAL dyspepsia 05/30/17 23:45 06/29/17 23:44 Dextrose (Dextrose 50%) STAT PRN IV Hypoglycemia 05/30/17 23:45 06/29/17 23:44 Diphenhydramine HCl (Benadryl) 12.5 mg Q6H PRN IVP Itching/Pruritis 06/01/17 16:45 06/30/17 08:44 Diphenhydramine HCl (Benadryl) 25 mg Q6H PRN ORAL Itching/Pruritis 05/30/17 23:45 06/29/17 23:44 Docusate Sodium (Colace) 100 mg TWICE A DAY ORAL 05/31/17 11:45 06/30/17 11:44 06/02/17 09:34 Heparin Sodium (Porcine) (Heparin 5000 units/ml) 5,000 units EVERY 12 HOURS SUBQ 05/31/17 09:00 06/30/17 08:59 06/02/17 09:38 Hydromorphone HCl (Dilaudid) 2 mg Q3H PRN IVP pain score 7-10 05/31/17 08:45 06/07/17 08:44 06/02/17 11:00 Lactated Ringer's 1,000 ml @ 50 mls/hr Q20H IV 06/02/17 12:00 07/02/17 11:59 06/02/17 12:21 Nitroglycerin (Ntg) 0.4 mg Q5M X 3 DOSES PRN SL Prn Chest Pain 05/30/17 23:45 06/29/17 23:44 Ondansetron HCl (Zofran) 4 mg Q6H PRN IVP Nausea & Vomiting 05/31/17 08:45 06/30/17 08:44 Piperacillin Sod/ Tazobactam Sod 3.375 gm/Sodium Chloride 110 ml @ 27.5 mls/hr EVERY 8 HOURS IVPB 05/31/17 06:00 06/07/17 05:59 06/02/17 05:14 Polyethylene Glycol (Miralax) 17 gm HSPRN PRN ORAL Constipation 05/30/17 23:45 06/29/17 23:44 Temazepam (Restoril) 15 mg HSPRN PRN ORAL Insomnia 05/30/17 23:45 06/06/17 23:44 06/02/17 05:14 Bubba Childs M.D. Jun 02, 2017 12:42
--- NOTE | 2017-06-02 14:38 | Pulmonology Progress Note ---
Subjective ROS Limited/Unobtainable: No Allergies: Coded Allergies: No Known Allergies (Unverified , 05/30/17) Objective Last 24 Hour Vital Signs Date Time Temp Pulse Resp B/P (MAP) Pulse Ox O2 Delivery O2 Flow Rate FiO2 06/02/17 11:52 98.7 85 20 131/83 99 Room Air 06/02/17 08:16 98.1 90 20 128/78 99 Room Air 06/02/17 07:06 98.5 06/02/17 04:32 98.5 79 19 127/87 95 Room Air 06/02/17 03:09 98.3 06/02/17 00:06 98.3 84 19 122/80 96 Room Air 06/01/17 22:04 99.7 06/01/17 20:42 100.9 88 18 123/73 96 Room Air Intake and Output 06/02/17 06/03/17 19:00 07:00 Output Total 740 ml Balance -740 ml Output Urine Total 300 ml Drainage Total 440 ml # Voids 1 General Appearance: WD/WN HEENT: normocephalic, atraumatic Respiratory/Chest: chest wall non-tender, lungs clear Cardiovascular: normal peripheral pulses, regular rhythm Abdomen: no mass, other - draining from GERHARD tube Laboratory Tests 06/02/17 06:10: White Blood Count 11.3H, Red Blood Count 3.91L, Hemoglobin 11.9L, Hematocrit 35.0L, Mean Corpuscular Volume 90, Mean Corpuscular Hemoglobin 30.4, Mean Corpuscular Hemoglobin Concent 34.0, Red Cell Distribution Width 10.6L, Platelet Count 336, Mean Platelet Volume 5.9L, Neutrophils (%) (Auto) , Lymphocytes (%) (Auto) , Monocytes (%) (Auto) , Eosinophils (%) (Auto) , Basophils (%) (Auto) , Differential Total Cells Counted 100, Neutrophils % ( Manual) 88H, Lymphocytes % (Manual) 6L, Monocytes % (Manual) 6, Eosinophils % ( Manual) 0, Basophils % (Manual) 0, Band Neutrophils 0, Platelet Estimate Adequate, Platelet Morphology Normal, Hypochromasia 1+ Current Medications Medications (Trade) Dose Ordered Sig/Estrada Route PRN Reason Start Time Stop Time Status Last Admin Dose Admin Acetaminophen (Tylenol) 650 mg Q4H PRN ORAL fever 05/30/17 23:45 06/29/17 23:44 06/01/17 21:05 Acetaminophen/ Hydrocodone Bitart ([place] 5/325) 1 tab Q4H PRN ORAL Moderate Pain (Pain Scale 4-6) 05/31/17 08:45 06/07/17 08:44 Al Hydroxide/Mg Hydroxide (Mylanta II) 30 ml Q6H PRN ORAL dyspepsia 05/30/17 23:45 06/29/17 23:44 Dextrose (Dextrose 50%) STAT PRN IV Hypoglycemia 05/30/17 23:45 06/29/17 23:44 Diphenhydramine HCl (Benadryl) 12.5 mg Q6H PRN IVP Itching/Pruritis 06/01/17 16:45 06/30/17 08:44 Diphenhydramine HCl (Benadryl) 25 mg Q6H PRN ORAL Itching/Pruritis 05/30/17 23:45 06/29/17 23:44 Docusate Sodium (Colace) 100 mg TWICE A DAY ORAL 05/31/17 11:45 06/30/17 11:44 06/02/17 09:34 Heparin Sodium (Porcine) (Heparin 5000 units/ml) 5,000 units EVERY 12 HOURS SUBQ 05/31/17 09:00 06/30/17 08:59 06/02/17 09:38 Hydromorphone HCl (Dilaudid) 2 mg Q3H PRN IVP pain score 7-10 05/31/17 08:45 06/07/17 08:44 06/02/17 14:19 Lactated Ringer's 1,000 ml @ 50 mls/hr Q20H IV 06/02/17 12:00 07/02/17 11:59 06/02/17 12:21 Nitroglycerin (Ntg) 0.4 mg Q5M X 3 DOSES PRN SL Prn Chest Pain 05/30/17 23:45 06/29/17 23:44 Ondansetron HCl (Zofran) 4 mg Q6H PRN IVP Nausea & Vomiting 05/31/17 08:45 06/30/17 08:44 06/02/17 14:24 Piperacillin Sod/ Tazobactam Sod 3.375 gm/Sodium Chloride 110 ml @ 27.5 mls/hr EVERY 8 HOURS IVPB 05/31/17 06:00 06/07/17 05:59 06/02/17 14:22 Polyethylene Glycol (Miralax) 17 gm HSPRN PRN ORAL Constipation 05/30/17 23:45 06/29/17 23:44 Temazepam (Restoril) 15 mg HSPRN PRN ORAL Insomnia 05/30/17 23:45 06/06/17 23:44 06/02/17 05:14 AMA GREEN Jun 02, 2017 14:38
[2017-06-02 16:00] VITALS: BP 145/74
[2017-06-02] MEDS ORDERED: LR 1000ml ONE (16:00)
[2017-06-02 20:12] VITALS: BP 135/83
[2017-06-03 00:08] VITALS: BP 129/83
[2017-06-03 04:13] VITALS: BP 129/84
[2017-06-03] MEDS: Piperacillin/Tazobactam 3.375 GM in NS 110 ML IVPB SCH ×3 (06:34→22:28)
[2017-06-03 07:50] LABS: BASOPHILS % (AUTO) 0.6 % (0.0-2.0); EOSINOPHILS % (AUTO) 0.6 % (0.0-3.0); LYMPHOCYTES % (AUTO) 10.6 % (20.0-45.0); MEAN CORPUSCULAR HEMOGLOBIN 31.9 PG (27.0-31.0); MEAN CORPUSCULAR HGB CONC 35.8 G/DL (32.0-36.0); MEAN CORPUSCULAR VOLUME 89 FL (80-99); MEAN PLATELET VOLUME 6.1 FL (6.5-10.1); MONOCYTES % (AUTO) 7.7 % (1.0-10.0); NEUTROPHILS % (AUTO) 80.6 % (45.0-75.0); PLATELET COUNT 344 K/UL (150-450); RED BLOOD COUNT 3.77 M/UL (4.70-6.10); RED CELL DISTRIBUTION WIDTH 10.9 % (11.6-14.8); WHITE BLOOD COUNT 8.9 K/UL (4.8-10.8)
[2017-06-03 08:03] LABS: MAGNESIUM 2.1 mg/dL (1.7-2.5); PHOSPHORUS 2.9 mg/dL (2.5-4.8)
[2017-06-03 08:12] LABS: ALANINE AMINOTRANSFERASE 15 U/L (3-41); ANION GAP 10 (5-15); ASPARTATE AMINO TRANSFERASE < 5 U/L (5-40); CALCIUM 8.8 mg/dL (8.6-10.2); CARBON DIOXIDE 29 mEQ/L (20-30); CHLORIDE 96 mEQ/L (98-107); CREATININE 0.9 mg/dL (0.7-1.2); GLOMERULAR FILTRATION RATE > 60 mL/min (>60); HEMOLYSIS 2; POTASSIUM 4.3 mEQ/L (3.4-4.9); SODIUM 135 mEQ/L (135-145); TOTAL PROTEIN 6.5 g/dL (6.6-8.7)
[2017-06-03] MEDS: Docusate 100mg cap ORAL SCH ×2 (08:15→17:39)
[2017-06-03 08:20] VITALS: BP 125/80
[2017-06-03] MEDS: Heparin 5000 units/ml inj SUBQ SCH ×2 (08:25→22:31)
[2017-06-03] MEDS: LR 1000ml 1,000 ML IV SCH (08:26)
[2017-06-03] MEDS ORDERED: Tubing IV Secondary IV ONE (09:49)
[2017-06-03] MEDS ORDERED: LR 1000ml ONE (09:49)
--- NOTE | 2017-06-03 11:55 | General Progress Note ---
Progress Note Progress Note Surgery: patient seen and examined at bedside. no acute events. afebrile, HD stable, labs improved. leukocytosis resolved. still having a fair amount of abdominal pain. believes its related to "gas pains" as when he passes flatus he feels better. still no BM minimal appetite. drain output high yesterday but minimal today (residual irrigation from surgery which mobilized when ambulatory) abdominal exam with mild distention, tender mainly around incisions and drain site. -d/c drain -diet as tolerated -ambulate and OOB -d/c planning for tomorrow. Osvaldo Qureshi Jun 03, 2017 11:55
[2017-06-03 12:20] VITALS: BP 134/84
--- NOTE | 2017-06-03 14:41 | Infectious Diseases Prog Note ---
Assessment/Plan Assessment/Plan ASSESSMENT: Acute appendicitis, w/o abscess, w/o perforation, s/p laparoscopic appendectomy 05/31/17 leukocytosis w/ left shift, resolved low grade temp 06/01, resolved R scapular referred pain, resolved post op incisional pain, improving PLAN: Continue empiric IV zosyn D#4 Once tolerating PO and ready for discharge, plan to transition to PO cipro 500mg twice daily and flagyl 500mg PO q8hr to complete 7 days post op. updated d/c meds and printed our prescription and placed in his paper chart. understand per surgery likely to go home tomorrow. monitor CBC monitor temp routine post op care incentive spirometry Subjective HEENT: Reports: no symptoms Respiratory: Reports: no symptoms Cardiovascular: Reports: no symptoms Gastrointestinal/Abdominal: Reports: bloating Genitourinary: Reports: no symptoms Skin: Reports: no symptoms Musculoskeletal: Reports: no symptoms Allergies: Coded Allergies: No Known Allergies (Unverified , 05/30/17) Subjective hasn't passed much gas yet. referred R scapular pain completely resolved. starting to tolerate diet but poor appetite. Objective Vital Signs Last 24 Hour Vital Signs Date Time Temp Pulse Resp B/P (MAP) Pulse Ox O2 Delivery O2 Flow Rate FiO2 06/03/17 12:20 97.3 74 18 134/84 94 Room Air 06/03/17 08:20 98.1 79 20 125/80 95 Room Air 06/03/17 04:13 97.8 87 19 129/84 96 Room Air 06/03/17 00:08 98.2 80 18 129/83 96 Room Air 06/02/17 20:12 98.1 82 19 135/83 96 Room Air 06/02/17 16:00 97.6 80 18 145/74 96 Room Air Height (Feet): 6 Height (Inches): 0.00 Weight (Pounds): 200 Objective GEN: awake, alert, non toxic appearing HEENT: conjunctiva pink. oral mucosa moist, pharynx w/o exudate or effusion. No icterus. Head normocephalic, neck supple. NECK: No cervical LAD CHEST: Clear to auscultation bilaterally. slight decreased breath sounds at right lung base. HEART: S1 and S2, no murmurs, no rubs. ABDOMEN: soft, non tender, non distended, hypoactive active bowel sounds. periumbilical lap appy incision site under dressing. low midline GERHARD drain dc' ed. EXTREMITIES: No cyanosis, no clubbing, no edema. NEUROLOGIC: Awake, alert, no focal neurologic motor deficits. : no andrea in place LYMPH: no LAD RECTAL: deferred Laboratory Tests Test 06/03/17 06:15 White Blood Count 8.9 K/UL (4.8-10.8) Red Blood Count 3.77 M/UL (4.70-6.10) L Hemoglobin 12.0 G/DL (14.2-18.0) L Hematocrit 33.6 % (42.0-52.0) L Mean Corpuscular Volume 89 FL (80-99) Mean Corpuscular Hemoglobin 31.9 PG (27.0-31.0) H Mean Corpuscular Hemoglobin Concent 35.8 G/DL (32.0-36.0) Red Cell Distribution Width 10.9 % (11.6-14.8) L Platelet Count 344 K/UL (150-450) Mean Platelet Volume 6.1 FL (6.5-10.1) L Neutrophils (%) (Auto) 80.6 % (45.0-75.0) H Lymphocytes (%) (Auto) 10.6 % (20.0-45.0) L Monocytes (%) (Auto) 7.7 % (1.0-10.0) Eosinophils (%) (Auto) 0.6 % (0.0-3.0) Basophils (%) (Auto) 0.6 % (0.0-2.0) Sodium Level 135 mEQ/L (135-145) Potassium Level 4.3 mEQ/L (3.4-4.9) Chloride Level 96 mEQ/L (98-107) L Carbon Dioxide Level 29 mEQ/L (20-30) Anion Gap 10 (5-15) Blood Urea Nitrogen 19 mg/dL (7-23) Creatinine 0.9 mg/dL (0.7-1.2) Estimat Glomerular Filtration Rate > 60 mL/min (>60) Glucose Level 116 mg/dL (74-106) H Calcium Level 8.8 mg/dL (8.6-10.2) Phosphorus Level 2.9 mg/dL (2.5-4.8) Magnesium Level 2.1 mg/dL (1.7-2.5) Total Bilirubin 0.8 mg/dL (0.0-1.2) Aspartate Amino Transf (AST/SGOT) < 5 U/L (5-40) L Alanine Aminotransferase (ALT/SGPT) 15 U/L (3-41) Alkaline Phosphatase 71 U/L (40-129) Total Protein 6.5 g/dL (6.6-8.7) L Albumin 3.3 g/dL (3.5-5.2) L Globulin 3.2 g/dL Albumin/Globulin Ratio 1.0 (1.0-2.7) Current Medications Medications (Trade) Dose Ordered Sig/Estrada Route PRN Reason Start Time Stop Time Status Last Admin Dose Admin Acetaminophen (Tylenol) 650 mg Q4H PRN ORAL fever 05/30/17 23:45 06/29/17 23:44 06/01/17 21:05 Acetaminophen/ Hydrocodone Bitart ([place] 5/325) 1 tab Q4H PRN ORAL Moderate Pain (Pain Scale 4-6) 05/31/17 08:45 06/07/17 08:44 06/03/17 02:20 Al Hydroxide/Mg Hydroxide (Mylanta II) 30 ml Q6H PRN ORAL dyspepsia 05/30/17 23:45 06/29/17 23:44 Dextrose (Dextrose 50%) STAT PRN IV Hypoglycemia 05/30/17 23:45 06/29/17 23:44 Diphenhydramine HCl (Benadryl) 12.5 mg Q6H PRN IVP Itching/Pruritis 06/01/17 16:45 06/30/17 08:44 Diphenhydramine HCl (Benadryl) 25 mg Q6H PRN ORAL Itching/Pruritis 05/30/17 23:45 06/29/17 23:44 Docusate Sodium (Colace) 100 mg TWICE A DAY ORAL 05/31/17 11:45 06/30/17 11:44 06/03/17 08:15 Heparin Sodium (Porcine) (Heparin 5000 units/ml) 5,000 units EVERY 12 HOURS SUBQ 05/31/17 09:00 06/30/17 08:59 06/03/17 08:25 Hydromorphone HCl (Dilaudid) 2 mg Q3H PRN IVP pain score 7-10 05/31/17 08:45 06/07/17 08:44 06/03/17 03:28 Lactated Ringer's 1,000 ml @ 50 mls/hr Q20H IV 06/02/17 12:00 07/02/17 11:59 06/03/17 08:26 Nitroglycerin (Ntg) 0.4 mg Q5M X 3 DOSES PRN SL Prn Chest Pain 05/30/17 23:45 06/29/17 23:44 Ondansetron HCl (Zofran) 4 mg Q6H PRN IVP Nausea & Vomiting 05/31/17 08:45 06/30/17 08:44 06/02/17 14:24 Piperacillin Sod/ Tazobactam Sod 3.375 gm/Sodium Chloride 110 ml @ 27.5 mls/hr EVERY 8 HOURS IVPB 05/31/17 06:00 06/07/17 05:59 06/03/17 14:13 Polyethylene Glycol (Miralax) 17 gm HSPRN PRN ORAL Constipation 05/30/17 23:45 06/29/17 23:44 Temazepam (Restoril) 15 mg HSPRN PRN ORAL Insomnia 05/30/17 23:45 06/06/17 23:44 06/02/17 21:27 Bubba Childs M.D. Jun 03, 2017 14:41
[2017-06-03 15:30] VITALS: BP 128/87
[2017-06-03 20:00] VITALS: BP 130/84
[2017-06-04] VITALS: BP 133/86
[2017-06-04 04:00] VITALS: BP 126/83
[2017-06-04] MEDS: LR 1000ml 1,000 ML IV SCH (04:00)
[2017-06-04] MEDS ORDERED: metroNIDAZOLE 500mg tab ORAL SCH (06:30)
--- NOTE | 2017-06-04 07:17 | Pulmonology Progress Note ---
Assessment/Plan Assessment/Plan ASSESSMENT acute suppurative appy s/p lap appy 05/31 postop pain leukocytosis-resolved PLAN OF CARE [facility] floor abx ID follows abx to be changed to po when dc diet as tolerated ambulatory afebrile, no leukocytosis drain dc surgeon cleared for dc dc today fup with surgeon as outpatient scripts provided : analgesics, Mylanta, Miralax oral abx scripts written by ID case discussed and evaluated by supervising physician Subjective Allergies: Coded Allergies: No Known Allergies (Unverified , 05/30/17) Subjective tolerated diet no n/v/ + abdominal discomfort and pain after eating ambulates voiding freely had BM Objective Last 24 Hour Vital Signs Date Time Temp Pulse Resp B/P (MAP) Pulse Ox O2 Delivery O2 Flow Rate FiO2 06/04/17 04:00 97.8 75 16 126/83 96 Room Air 06/04/17 00:00 97.9 83 16 133/86 95 Room Air 06/03/17 20:00 97.6 86 16 130/84 96 Room Air 06/03/17 15:30 98.5 86 18 128/87 97 Room Air 06/03/17 12:20 97.3 74 18 134/84 94 Room Air 06/03/17 08:20 98.1 79 20 125/80 95 Room Air General Appearance: WD/WN, no acute distress HEENT: normocephalic, atraumatic, anicteric, mucous membranes moist, PERRL Respiratory/Chest: lungs clear, no respiratory distress, no accessory muscle use Cardiovascular: normal peripheral pulses, normal rate, regular rhythm, no JVD Abdomen: normal bowel sounds, soft, non tender - small dressing C/D/I Genitourinary: normal external genitalia Extremities: no edema, pedal pulses normal 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, no motor/sensory deficits, alert, oriented x 3, responsive, normal mood/affect Musculoskeletal: normal muscle bulk Current Medications Medications (Trade) Dose Ordered Sig/Estrada Route PRN Reason Start Time Stop Time Status Last Admin Dose Admin Acetaminophen (Tylenol) 650 mg Q4H PRN ORAL fever 05/30/17 23:45 06/29/17 23:44 06/01/17 21:05 Acetaminophen/ Hydrocodone Bitart ([place] 5/325) 1 tab Q4H PRN ORAL Moderate Pain (Pain Scale 4-6) 05/31/17 08:45 06/07/17 08:44 06/03/17 02:20 Al Hydroxide/Mg Hydroxide (Mylanta II) 30 ml Q6H PRN ORAL dyspepsia 05/30/17 23:45 06/29/17 23:44 06/03/17 15:25 Ciprofloxacin (Cipro 500mg tab) 500 mg EVERY 12 HOURS ORAL 06/04/17 09:00 06/11/17 08:59 Dextrose (Dextrose 50%) STAT PRN IV Hypoglycemia 05/30/17 23:45 06/29/17 23:44 Diphenhydramine HCl (Benadryl) 12.5 mg Q6H PRN IVP Itching/Pruritis 06/01/17 16:45 06/30/17 08:44 Diphenhydramine HCl (Benadryl) 25 mg Q6H PRN ORAL Itching/Pruritis 05/30/17 23:45 06/29/17 23:44 Docusate Sodium (Colace) 100 mg TWICE A DAY ORAL 05/31/17 11:45 06/30/17 11:44 06/03/17 17:39 Heparin Sodium (Porcine) (Heparin 5000 units/ml) 5,000 units EVERY 12 HOURS SUBQ 05/31/17 09:00 06/30/17 08:59 06/03/17 22:31 Hydromorphone HCl (Dilaudid) 2 mg Q3H PRN IVP pain score 7-10 05/31/17 08:45 06/07/17 08:44 06/03/17 03:28 Metronidazole (Flagyl) 500 mg Q8HR ORAL 06/04/17 06:30 06/11/17 06:29 06/04/17 06:36 Nitroglycerin (Ntg) 0.4 mg Q5M X 3 DOSES PRN SL Prn Chest Pain 05/30/17 23:45 06/29/17 23:44 Ondansetron HCl (Zofran) 4 mg Q6H PRN IVP Nausea & Vomiting 05/31/17 08:45 06/30/17 08:44 06/02/17 14:24 Polyethylene Glycol (Miralax) 17 gm HSPRN PRN ORAL Constipation 05/30/17 23:45 06/29/17 23:44 06/03/17 17:48 Temazepam (Restoril) 15 mg HSPRN PRN ORAL Insomnia 05/30/17 23:45 06/06/17 23:44 06/02/17 21:27 Carlo ([facility])Linh NP Jun 04, 2017 07:17
[2017-06-04 08:00] VITALS: BP 128/87
[2017-06-04] MEDS: Docusate 100mg cap ORAL SCH (08:37)
[2017-06-04] MEDS: Heparin 5000 units/ml inj SUBQ SCH (08:37)
[2017-06-04] MEDS ORDERED: MIRALAX17 G2 ORAL (08:58)
[2017-06-04] MEDS ORDERED: ACETAMINOPHEN-1 EAC1 ORAL (08:58)
[2017-06-04] MEDS ORDERED: [UNRECOGNIZED DRUG - OTHER] (08:59)
[2017-06-04] MEDS ORDERED: Ciprofloxacin 500mg tab ORAL SCH (09:00)
[2017-06-04] MEDS ORDERED: mylanta PO (09:02)
--- NOTE | 2017-06-04 10:28 | General Progress Note ---
Progress Note Progress Note Surgery: doing well. pain much improved. wound dry since arnoldo drain removed. tolerating oral diet. ambulatory. +flatus, +BM last night. no n/v/f/c. afebrile, HD stable, exam improved. abdomen soft, incisional tenderness, non distended, BS+ , wounds c/d/i okay to d/c home follow up in 1 week diet as tolerated okay to shower Osvaldo Qureshi Jun 04, 2017 10:28
--- NOTE | 2017-06-05 08:50 | Discharge Summary ---
Discharge Summary Hospital Course Date of Admission May 30, 2017 at 23:30 Date of Discharge Jun 04, 2017 at 10:39 Admitting Diagnosis appendicitis. DANIEL Johnson is a 36 year old male who was admitted on May 30, 2017 at 23:30 for Appendicitis Hospital Course dc summary #[id number] Discharge Medications New Medications: Ciprofloxacin Hcl* (Ciprofloxacin Hcl*) 500 Mg Tablet 500 MG ORAL Q12H for 7 Days, #14 TAB 0 Refills Metronidazole* (Flagyl*) 500 Mg Tablet 500 MG ORAL THREE TIMES A DAY for 7 Days, #21 TAB Continued Medications: Acetaminophen With Codeine (T#3) (Tylenol #3 Tab*) Y Tab 2 TAB ORAL Q6H PRN for For Pain, #20 TAB Polyethylene Glycol 3350* (Miralax*) 17 Gm Powd.pack 17 GM ORAL DAILY for hold if diarrhea, PACKET [mylanta] () 30 ML PO Q6HR PRN for dyspepsia Discharge Condition Upon Discharge: stable Discharge Disposition Patient was discharged to Home (01) Discharge Diagnoses: Carlo (Gopal)Linh NP Jun 05, 2017 08:50
--- NOTE | 2017-06-06 01:00 | Discharge Summary 2 SIG ---
DATE OF ADMISSION: 05/30/2017 DATE OF DISCHARGE: 06/04/2017 REASON FOR ADMISSION: 36-year-old male with no past medical history presented with acute onset of upper abdominal pain. Pain was severe, rated 10/10 on a scale of 1 to 10, no radiation. Reported nausea, but no vomiting. No fevers. No chills. No trauma. No injury. Had bowel movement. No diarrhea, no blood in stool. Workup in the emergency room revealed stable vital signs. WBC- 17. No fever. CT of the abdomen and pelvis revealed acute appendicitis. While in the emergency room, initially reported pain in upper quadrant and periumbilical area and later started to have right lower quadrant pain. Surgeon was notified, and the patient was admitted for further intervention. ADMITTING DIAGNOSES : 1. Acute appendicitis. 2. Leukocytosis. HOSPITAL COURSE: The patient was admitted. The patient was kept NPO. The patient was started on IV fluids and empiric antibiotics. ID followed. Surgeon seen the patient early in the morning and scheduled for laparoscopic appendectomy with explanation of all risks, nature, and benefits of the procedure. After consenting to surgery, the patient had subsequently undergone on 05/31/2017 laparoscopic appendectomy with findings of suppurative appendicitis. Course of recovery was uneventful. Initially NPO with Joshua Modi drain. Surgeon closely followed. Pathology of appendix revealed acute transmural appendicitis and serositis. IV antibiotics were continued. Leukocytosis resolved. Pain management was addressed and controlled. Patient was encouraged to ambulate and use incentive spirometry while in the bed. The patient slowly started on liquid diet and advanced as tolerated. Patient was able to tolerate diet. Drain was discontinued by surgeon. Patient had bowel movement. Patient reported mild incisional tenderness, but no pain. Abdomen was nondistended. No fevers. The patient was hemodynamically stable. Surgeon cleared the patient to shower and discharge and follow up in one week as an outpatient. ID provided prescription for oral antibiotic. Prescription for analgesic, Mylanta and MiraLAX provided as well. Patient was stable for discharge. FINAL DIAGNOSES: 1. Acute suppurative appendicitis. 2. Status post laparoscopic appendectomy 05/31/2017. 3. Postoperative pain, DISCHARGE MEDICATIONS: See medication reconciliation list. Continue oral antibiotics for 7 days ( as recommended by ID specialist) DISCHARGE INSTRUCTIONS: The patient was discharged home. Follow up with surgeon in one week. Carmela Giron M.D. Linh Matos N.P. ([place]te[place]) DR: CONNER JOB#: [id number] CC: [email or web address]
== END 2017-06-04 10:39 | disposition home or self-care (01) | DRG 225 ==
LOC: EMR 21:09 → 3E 23:30 → EDBEDREQ 23:39 → 3E 05-31 00:02
PROC: 0DTJ4ZZ Resection of Appendix, Percutaneous Endoscopic Approach (ICD-10-PCS; principal; 2017-05-31 06:30)
DX: K35.3 Acute appendicitis with localized peritonitis (principal); G89.18 Other acute postprocedural pain
CPT/HCPCS: 36415; 74177; 80048; 80053; 81003; 82150; 83690; 83735; 84100; 85007; 85025; 85610; 85730; 94003; 94150; 99285; J2250; J2405; J2710